=== PATIENT | male | born 1965 | race Caucasian/White ===

== ENCOUNTER 2017-09-10 15:39 | Emergency (ER) | payer BC, SELFPAY ==
[2017-09-10 15:40] VITALS: BP 163/103; PULSE 87; RESP 18; TEMP 36.5; O2SAT 99; BMI 22.8
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
[2017-09-10] MEDS: Diphth,Pertuss(Acell),Tet Vac 0.5 ML Vial IM (17:21)
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
--- NOTE | 2017-09-10 17:48 | ED.DEP ---
ED Disposition - Plan for ED Patient: Chief Complaint: Trauma Instructions: ED Foreign Body Soft Tissue, ED Foreign Body Soft Tissue Removed Prescriptions: Cephalexin [Keflex] 500 mg PO Q6 #40 cap Referrals: [facility] Doctor,Out of [Primary Care Provider] - Additional Instructions: Follow-up with your doctor. You do still have several metallic foreign bodies in your arms.
[2017-09-10 18:08] VITALS: PULSE 78; RESP 18; O2SAT 99
== END 2017-09-10 18:16 | disposition home or self-care (01) ==
PROVIDERS: Emergency Provider Emergency Medicine
DX: S61.241A Puncture wound with foreign body of left index finger without damage to nail, initial encounter (principal); S51.841A Puncture wound with foreign body of right forearm, initial encounter; S41.142A Puncture wound with foreign body of left upper arm, initial encounter; S70.922A Unspecified superficial injury of left thigh, initial encounter; S20.302A Unspecified superficial injuries of left front wall of thorax, initial encounter; W34.010A Accidental discharge of airgun, initial encounter; Y93.K9 Activity, other involving animal care; Y92.9 Unspecified place or not applicable; Y99.9 Unspecified external cause status; Z23 Encounter for immunization; Z72.0 Tobacco use
CPT/HCPCS: 10120; 71020; 73060; 73090; 73120; 90471; 90715; 99284